=== PATIENT | male | born 1995 | race African-American/Black ===

== ENCOUNTER 2021-07-22 23:36 | Emergency (ER) | payer SELFPAY ==
[~2021-07-22] VITALS: Ht 162.6 cm; Wt 72.6 kg
[2021-07-23 01:05] VITALS: BP 148/70
== END 2021-07-23 01:27 | disposition home or self-care (01) ==
LOC: ER 23:36
DX: S61.214D Laceration without foreign body of right ring finger without damage to nail, subsequent encounter (principal); X58.XXXD Exposure to other specified factors, subsequent encounter